=== PATIENT | female | born 1940 | race Caucasian/White ===

== ENCOUNTER 2019-12-28 11:09 | Outpatient (CLI) | payer BC, SELFPAY ==
--- NOTE | 2019-12-28 11:20 | MM_ITS ---
WS: [id number] Exam: [id number] Date/Time of Exam: 12/28/2019 12:52 PM Reason For Exam: SCREENING VIEWS: MLO and CC views both breasts. Comparison made with prior exam of 07/14/2016. Findings: There was no sign of mass, architectural distortion or suspicious calcification in either breast. Sc attered fibroglandular densities MM/[place] [id number] Impression: BI-RADS: 2-Benign FOLLOW-UP: 1 Year Follow-up This mammogram was also analyzed by the Computer Aided Detection System R2 Imag e Works Manager.
== END 2019-12-28 11:10 | disposition home or self-care (01) ==
PROVIDERS: PCP Family Medicine; Visit Provider Family Medicine
DX: Z12.31 Encounter for screening mammogram for malignant neoplasm of breast (principal)
CPT/HCPCS: 77067

== ENCOUNTER 2021-02-22 14:58 | Outpatient (CLI) | payer BC, SELFPAY ==
--- NOTE | 2021-02-22 15:09 | MM_ITS ---
WS: [id number] BILATERAL DIGITAL SCREENING MAMMOGRAPHY WITH CAD CLINICAL INFORMATION: SCREENING COMPARISON: December 28, 2019 TECHNIQUE: Bilateral CC and MLO views. FINDINGS: Scattered fibroglandular densities bilaterally. Stable dystrophic calcification right breast. Stable ovoid nodule inner right breast. No suspicious focal mass, asymmetry, calcifications, or architectura l distortion. No evidence of malignancy. MM/[place] [id number] IMPRESSION: BI-RADS: 2-Benign FOLLOW UP: 1 Year Follow-up Recommend return to annual screening mammography.
== END 2021-02-22 14:59 | disposition home or self-care (01) ==
LOC: RADSHAW 15:04
PROVIDERS: PCP Family Medicine; Visit Provider Family Medicine
DX: Z12.31 Encounter for screening mammogram for malignant neoplasm of breast (principal)
CPT/HCPCS: 77067

== ENCOUNTER 2021-05-21 13:57 | Outpatient (CLI) | payer BC, SELFPAY ==
--- NOTE | 2021-05-21 14:19 | USCV_ITS ---
Hortencia Rodriguez Age: 81 Gender: F : 1940 Exam Date: 05/21/2021 14:52 Ordering Phys: Loreta Dominguez MD Technologist: Deandra Andrea Exam Location: [facility] – [place] Indication: MURMUR BP: / HR: 62 Rhythm: Sinus Technical Quality: Adequate MEASUREMENTS (Male / Female) Normal Values 2D ECHO LV Diastolic Diameter PLAX 4.6 cm 4.2 - 5.9 / 3.9 - 5.3 cm LV Systolic Diameter PLAX 3.5 cm LV Chamber Size 4.6 cm IVS Diastolic Thickness 0.9 cm 0.6 - 1.0 / 0.6 - 0.9 cm IVS Systolic Thickness 1.2 cm LVPW Diastolic Thickness 1.3 cm 0.6 - 1.0 / 0.6 - 0.9 cm LVPW Systolic Thickness 1.8 cm RV Chamber Size 2.5 cm LVOT Diameter 2.1 cm LV Ejection Fraction 2D Teich 47.2 % LV Ejection Fraction MOD 2C 76.4 % LV Ejection Fraction 2C AL 76.7 % LA Diameter 3.7 cm LA Width 2.8 cm LA Height 4.0 cm RA Width 4.3 cm RA Height 4.6 cm Aorta at Sinotubular Diameter 2.7 cm M-MODE Aortic Annulus Diameter 3.7 cm LA Ao Ratio MM 1.2 MV E Point Septal Separation 0.6 cm DOPPLER AV Peak Velocity 129.0 cm/s LVOT Peak Velocity 95.0 cm/s AV Area Cont Eq vti 2.6 cm squared AV Area Cont Eq pk 2.5 cm squared MV Area PHT 4.0 cm squared Mitral E to A Ratio 1.5 MV E' Velocity 57.0 cm/s Mitral E to MV E' Ratio 14.7 Mitral E to LV E' Lateral Ratio 19.2 Mitral E to LV E' Septal Ratio 12.1 TR Peak Velocity 302.5 cm/s TR Peak Gradient 36.6 mmHg TR Mean Velocity 243.8 cm/s TR Mean Gradient 25.3 mmHg TR Velocity Time Integral 95.5 cm TV Peak E Velocity 56.0 cm/s Right Atrial Pressure 3.0 mmHg Pulmonary Artery Systolic Pressu 39.6 mmHg PV Peak Velocity 63.0 cm/s RV Acceleration Time 0.1 s RV Ejection Time 0.4 s RV AcT/ET 0.3 FINDINGS Left Ventricle Normal left ventricular size and systolic function, EF 80 %. No regional wall motion abnormalities. Right Ventricle The right ventricle is normal in size and function. Right Atrium The right atrium is normal in size. Left Atrium Mildly increased left atrial size. Mitral Valve Mild mitral valve regurgitation. Aortic Valve Olny-kh-lulzuoui aortic valve regurgitation. Tricuspid Valve Trace to mild tricuspid valve regurgitation. Pulmonic Valve No gross abnormalities no Pericardium Normal pericardium without effusion. Aorta Normal ascending aorta dimension. CONCLUSIONS Normal left ventricular size and systolic function, EF 80 %. No regional wall motion abnormalities. Mild mitral valve regurgitation. Trace to mild tricuspid valve regurgitation. Mild mitral valve regurgitation. Estimated pulmonary artery peak systolic pressure of 40 mmHg. There is no pericardial effusion. There are no intracardiac masses. No previous study is available for comparison. Dr Ingrid Lackey MD [facility] (Electronically Signed) Final Date: 22 May 2021 00:04 S
== END 2021-05-21 13:58 | disposition home or self-care (01) ==
PROVIDERS: PCP Family Medicine; Visit Provider Family Medicine
DX: R01.1 Cardiac murmur, unspecified (principal); I08.1 Rheumatic disorders of both mitral and tricuspid valves
CPT/HCPCS: 93306

== ENCOUNTER 2021-11-22 13:59 | Outpatient (CLI) | payer BC, SELFPAY ==
--- NOTE | 2021-11-22 14:13 | XR_ITS ---
WS: [id number] DEXA (DUAL ENERGY X-RAY ABSORPTIOMETRY) Bone mineral density was performed using a Codef[employer] machine. HISTORY: Asymptomatic MENOPAUSAL STATE COMPARISON: 04/17/2017 Lumbar spine BMD (L1-L4): 1.499 g/cm2 T score: 2.7 Z score: 4.3 Total hip BMD: Left: 1.049 g/cm2. T score: 0.3 Z score: 2.3 Right: 1.071 g/cm2. T score: 0.5 Z score: 2.5 10 year probability of a major osteoporotic fracture is 12.8%. Compared to the prior study from 04/17/2017. Lumbar spine bone mineral density has increased by 1.5%. Bilateral hips bone mineral density has decreased by 4.4%. XR/XR DEXA axial skeleton* [id number] IMPRESSION: NORMAL BONE MINERAL DENSITY based upon the WHO classification for females. Significant decrease in bone mineral density within the hips since the prior .
== END 2021-11-22 14:00 | disposition home or self-care (01) ==
LOC: RAD 13:59
PROVIDERS: PCP Family Medicine; Visit Provider Family Medicine
DX: Z78.0 Asymptomatic menopausal state (principal)
CPT/HCPCS: 77080

== ENCOUNTER 2022-03-07 10:27 | Outpatient (CLI) | payer BC, SELFPAY ==
--- NOTE | 2022-03-07 10:43 | MM_ITS ---
WS: [id number] VIEWS: MLO and CC views both breasts. 3D digital tomosynthesis is also included in this exam. Comparison made with prior exam of 06/20/2015, 07/14/2016, 09/18/2017, 12/28/2019, 02/22/2021.. Findings: Stable appearing nodular densities in both breasts. No architectural distortion or tumor calcificatio n. Scattered fibroglandular densities MM/[place] [id number] Impression: BI-RADS: 2-Benign FOLLOW-UP: 1 Year Follow-up This mammogram was also analyzed by the Computer Aided Detection System R2 Imag e Pcas.
== END 2022-03-07 10:28 | disposition home or self-care (01) ==
PROVIDERS: PCP Family Medicine; Visit Provider Family Medicine
DX: Z12.31 Encounter for screening mammogram for malignant neoplasm of breast (principal)
CPT/HCPCS: 77063; 77067

== ENCOUNTER → 2022-04-04 10:17 | Outpatient (BNVA) | payer BC, SELFPAY | PROVIDERS: PCP Family Medicine; Visit Provider Urology | DX: N39.44 Nocturnal enuresis (principal) | CPT/HCPCS: 81003 ==

== ENCOUNTER 2023-01-14 08:09 | Outpatient (CLI) | payer BC, SELFPAY ==
--- NOTE | 2023-01-14 08:13 | USCV_ITS ---
Hortencia Rodriguez Age: 82 Gender: F : 1940 Exam Date: 01/14/2023 08:22 Ordering Phys: Loreta Dominguez MD Technologist: [place] [facility] [place]: cp,murmur BP: 161 / 72 HR: 84 Rhythm: Sinus Technical Quality: Adequate MEASUREMENTS (Male / Female) Normal Values 2D ECHO LV Chamber Size 4.7 cm RV Chamber Size 4.5 cm LV Ejection Fraction MOD 2C 55.1 % LV Ejection Fraction 2C AL 55.0 % LA Diameter 4.5 cm LA Width 4.6 cm LA Height 5.6 cm RA Width 4.4 cm RA Height 5.2 cm Aorta at Sinotubular Diameter 2.7 cm IVC Diameter 1.8 cm M-MODE Aortic Annulus Diameter 3.6 cm LA Ao Ratio MM 1.3 MV E Point Septal Separation 0.5 cm DOPPLER AV Peak Velocity 125.0 cm/s LVOT Peak Velocity 103.0 cm/s TR Peak Velocity 184.5 cm/s TR Peak Gradient 13.6 mmHg TV Peak E Velocity 88.0 cm/s Right Atrial Pressure 3.0 mmHg Pulmonary Artery Systolic Pressu 16.6 mmHg PV Peak Velocity 145.0 cm/s FINDINGS Left Ventricle Normal left ventricular size, systolic function and wall thickness, with no regional wall motion abnormalities. Grade II/IV diastolic dysfunction, moderately elevated filling pressures. Left ventricular ejection fraction is estimated at 60 %. Right Ventricle Normal right ventricular size and systolic function. Right Atrium Mildly increased right atrial size. Left Atrium Mildly increased left atrial size. Mitral Valve Structurally normal mitral valve. Trace mitral valve regurgitation. Aortic Valve Structurally normal trileaflet aortic valve. No aortic valve stenosis. Mild aortic valve regurgitation. Tricuspid Valve Structurally normal tricuspid valve. Mild tricuspid valve regurgitation. Pulmonic Valve Pulmonic valve not well visualized. Mild pulmonary valve regurgitation. Pericardium Normal pericardium without effusion. Aorta Normal ascending aorta dimension. IVC The inferior vena cava appears normal. CONCLUSIONS Normal left ventricular size, systolic function and wall thickness, with no regional wall motion abnormalities. Grade II/IV diastolic dysfunction, moderately elevated filling pressures. Left ventricular ejection fraction is estimated at 60 %. Mildly increased right atrial size. Mildly increased left atrial size. Structurally normal mitral valve. Trace mitral valve regurgitation. Structurally normal trileaflet aortic valve. No aortic valve stenosis. Mild aortic valve regurgitation. Previous study was done in May of last year. The only change is the aortic insufficiency noted on today's study. Otherwise there has been no change. Dr. Nagi Nielson MD (Electronically Signed) Final Date: 14 January 2023 15:20 S
== END 2023-01-14 08:10 | disposition home or self-care (01) ==
LOC: RAD 08:09
PROVIDERS: PCP Family Medicine; Visit Provider Family Medicine
DX: I08.0 Rheumatic disorders of both mitral and aortic valves (principal); R01.1 Cardiac murmur, unspecified; R07.9 Chest pain, unspecified
CPT/HCPCS: 93306

== ENCOUNTER 2023-01-14 09:15 | Outpatient (CLI) | payer BC, SELFPAY ==
[2023-01-14 09:43] VITALS: BMI 25.7
--- NOTE | 2023-01-14 10:26 | NMCV_ITS ---
NM raf perf SPECT r/s* [id number] Hortencia Rodriguez Age: 82 Gender: F : 1940 Exam Date: 01/14/2023 10:58 Ordering Phys: Loreta Dominguez MD Technologist: MELISSA Ng Exam Location: [facility] Indications: CHEST PAIN STRESS TEST Please see separate stress test report in [facility] for full findings IMAGE PROTOCOL Rest/Stress 1 Exercise Day Radiopharmaceutical Dose (mCi) Administration Site Administered by Rest: Tc-99m 10.6 IV MELISSA Fang Sestamibi Stress:Tc-99m 32.2 IV MELISSA Fang Sestamibi Rest: 14-Jan-2023 60 Discovery 630 Stress: 14-Jan-2023 15 Discovery 630 Radiopharmaceutical was injected at 90 % maximum heart rate. Images obtained in supine and prone position. SPECT RESULTS Technical Quality: Excellent Raw Data Analysis: Normal Image Corrections: No attenuation or motion correction applied Summed Stress Score: 0 Summed Rest Score: 0 Summed Difference Score: 0 PERFUSION FINDINGS SPECT images demonstrate homogeneous tracer distribution throughout the myocardium. FUNCTIONAL RESULTS (calculated via Gated SPECT) Stress Image LV EF (%): 73 Stress EDV (mL):78 TID: 1.11 Stress ESV (mL):21 FUNCTIONAL FINDINGS: The left ventricle is normal in size. Transient Ischemia Dilatation of 1.1. The left ventricular ejection fraction is normal with a value of 73%. There is normal left ventricular wall thickening. Normal end diastolic and end systolic volumes. IMPRESSIONS 1. Myocardial perfusion imaging is normal. 2. Overall left ventricular systolic function is normal without regional wall motion abnormalities, LVEF=73%. 3. EKG portion of the study will be reported separately. 4. Scan indicates low risk for cardiac events. Yudy Buenrostro MD (Electronically Signed) Final Date: 17 January 2023 22:34 S
--- NOTE | 2023-01-14 10:26 | ECG_ITS ---
[facility] Test Date: 2023-01-14 Pat Name: Hortencia Rodriguez Department: Room: Gender: Female Cat [employer] Dog Bather: Amado Ramos : 1940 Requested By: Loreta Bai Order Number: [id number] Craft MD: Yudy Buenrostro M.D. Interpretive Statements NAME OF STUDY: EXERCISE SESTAMIBI STRESS TEST INDICATION: Chest Pain Baseline blood pressure of 155/79 mm Hg, heart rate 99 beats per minute and oxygen saturation of 94%. EKG showed sinus rhythm with PAC's with normal axis with nonspecific ST depression. ??? The patient exercised for 2 minutes and 45 seconds on a standard Ishmael protocol. Patient attained a maximum heart rate of 158 beats per minute(114 % of the maximum predicted heart rate) with a blood pressure at the peak exercise of 157/55 mm Hg. The EKG at the peak exercise revealed no significant ST-T wave changes. Interpretation limited by artifact. Patient did not have any chest pain or any significant arrhythmis with the exercise??? During the recovery phase, there were no new changes. ??? Blood pressure at the end of the recovery phase was 152/74 mm Hg with a heart rate of 101 beats per minute and oxygen saturation of 97%. ??? CONCLUSION: 1. Normal EKG response to treadmill exercise. 2. No exercise-induced chest pain or cardiac arrhythmia 3. Fair Exercise tolerance, attained a maximum of 4.6 METs. 4. Baseline hypertension with normal response to exercise. 5. Perfusion scan will be documented separately. Electronically Signed On 01-20-2023 14:16:19 NCA CERTIFIED CONCIERGE by Yudy Buenrostro M.D. [id number]
[2023-01-14 11:55] VITALS: BP 152/74; PULSE 97
== END 2023-01-14 09:16 | disposition home or self-care (01) ==
PROVIDERS: PCP Family Medicine; Visit Provider Family Medicine
DX: R07.9 Chest pain, unspecified (principal)
CPT/HCPCS: 36415; 78452; 93017; A9500

== ENCOUNTER 2023-03-11 08:57 | Outpatient (CLI) | payer BC, SELFPAY ==
--- NOTE | 2023-03-11 09:03 | MM_ITS ---
WS: [id number] BILATERAL SCREENING DIGITAL TOMOSYNTHESIS MAMMOGRAM WITH CAD HISTORY: SCREENING COMPARISON: 03/07/2022, 02/22/2021 and 10/25/2018 Bilateral CC and MLO views with tomosynthesis and synthetic mammography submitted. Computer aided det ection analyzed. Breast composition: There are scattered areas of fibroglandular density. No suspicious masses, microc alcifications or architectural distortion. Long-term stability masses are reidentified in the RIGHT b reast. These are benign by imaging. IMPRESSION: MM/[place] [id number] BI-RADS: 2-Benign FOLLOW UP: 1 Year Follow-up
== END 2023-03-11 08:58 | disposition home or self-care (01) ==
PROVIDERS: PCP Family Medicine; Visit Provider Family Medicine
DX: Z12.31 Encounter for screening mammogram for malignant neoplasm of breast (principal); R92.323 Mammographic fibroglandular density, bilateral breasts
CPT/HCPCS: 77063; 77067

== ENCOUNTER 2023-09-11 12:38 | Outpatient (CLI) | payer BC, SELFPAY ==
--- NOTE | 2023-09-11 12:43 | XR_ITS ---
WS: [id number] Right hand, 3 views, 09/11/2023 Clinical Data: PAIN IN FINGER OF R HAND/FALL AT HOME Comparison: None. Findings: There is a fracture of the midshaft of the right fifth metacarpal. There is no significan t displacement. There is soft tissue swelling about the fracture site. There is osteoarthritic change of the IP joint of the right thumb and of the PIP and DIP joints of the right second through fifth f ingers. The right first CMC joint shows degenerative change. There are cystic changes in the carpal bones, especially of the lunate scaphoid trapezium and trapezo id. XR/XR hand RT min 3V* [id number] Impression: 1. Fracture of the right fifth metacarpal. 2. 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
== END 2023-09-11 12:39 | disposition home or self-care (01) ==
LOC: RAD 12:40
PROVIDERS: PCP Family Medicine; Visit Provider Family Medicine
DX: S62.306A Unspecified fracture of fifth metacarpal bone, right hand, initial encounter for closed fracture (principal); M19.041 Primary osteoarthritis, right hand; W19.XXXA Unspecified fall, initial encounter
CPT/HCPCS: 73130

== ENCOUNTER → 2023-09-22 14:54 | Outpatient (BNVA) | payer BC, SELFPAY | PROVIDERS: PCP Family Medicine; Visit Provider Student in an Organized Health Care Education/Training Program | DX: S62.306A Unspecified fracture of fifth metacarpal bone, right hand, initial encounter for closed fracture; S69.91XA Unspecified injury of right wrist, hand and finger(s), initial encounter; X58.XXXA Exposure to other specified factors, initial encounter | CPT/HCPCS: 73130 ==

== ENCOUNTER 2023-09-22 16:29 | Outpatient (CLI) | payer BC, SELFPAY | END 2023-09-22 16:30 | disposition home or self-care (01) | LOC: SPT 16:30 | PROVIDERS: PCP Family Medicine; Visit Provider Student in an Organized Health Care Education/Training Program | DX: Z46.89 Encounter for fitting and adjustment of other specified devices (principal); S62.306D Unspecified fracture of fifth metacarpal bone, right hand, subsequent encounter for fracture with routine healing; X58.XXXD Exposure to other specified factors, subsequent encounter | CPT/HCPCS: 97760; L3984 ==

== ENCOUNTER → 2023-10-27 09:43 | Outpatient (BNVA) | payer BC, SELFPAY | PROVIDERS: PCP Family Medicine; Visit Provider Student in an Organized Health Care Education/Training Program | DX: S62.306A Unspecified fracture of fifth metacarpal bone, right hand, initial encounter for closed fracture; S69.91XA Unspecified injury of right wrist, hand and finger(s), initial encounter; X58.XXXA Exposure to other specified factors, initial encounter | CPT/HCPCS: 73130 ==

== ENCOUNTER → 2023-12-08 09:43 | Outpatient (BNVA) | payer BC, SELFPAY | PROVIDERS: PCP Family Medicine; Visit Provider Student in an Organized Health Care Education/Training Program | DX: S62.308A Unspecified fracture of other metacarpal bone, initial encounter for closed fracture (principal); M19.041 Primary osteoarthritis, right hand; X58.XXXA Exposure to other specified factors, initial encounter | CPT/HCPCS: 73130 ==

== ENCOUNTER 2024-03-14 13:44 | Outpatient (CLI) | payer BC, SELFPAY ==
--- NOTE | 2024-03-14 14:00 | MM_ITS ---
WS: [id number] BILATERAL 3D TOMOSYNTHESIS DIGITAL SCREENING MAMMOGRAPHY WITH CAD CLINICAL INFORMATION: SCREENING HISTORY: Screening mammogram. No current complaints. COMPARISON: 2023 TECHNIQUE: Bilateral CC and MLO views. FINDINGS: Scattered fibroglandular densities bilaterally. No suspicious focal mass, asymmetry, calcifications, or architectural distortion. No evidence of malignancy Stable dystrophic calcifications RIGHT breast. Stable ovoid nodule with biopsy clip RIGHT breast. Vas cular calcification. MM/MM scr tomosynthesis [id number] IMPRESSION: DENSITY: There are scattered areas of fibroglandular density. BI-RADS: 2 - Benign. FOLLOW UP: 1 Year Follow-up Recommend return to annual screening mammography.
== END 2024-03-14 13:45 | disposition home or self-care (01) ==
PROVIDERS: PCP Family Medicine; Visit Provider Family Medicine
DX: Z12.31 Encounter for screening mammogram for malignant neoplasm of breast (principal); R92.323 Mammographic fibroglandular density, bilateral breasts; R92.1 Mammographic calcification found on diagnostic imaging of breast; N63.10 Unspecified lump in the right breast, unspecified quadrant
CPT/HCPCS: 77063; 77067

== ENCOUNTER 2024-09-06 09:35 | Outpatient (CLI) | payer BC, SELFPAY | END 2024-09-06 09:36 | disposition home or self-care (01) | LOC: RT 09:37 | PROVIDERS: PCP Nurse Practitioner Family; Visit Provider Nurse Practitioner Family | DX: R06.09 Other forms of dyspnea (principal); R05.9 Cough, unspecified; R06.2 Wheezing; R06.02 Shortness of breath | CPT/HCPCS: 94010; 94726; 94729 ==